=== PATIENT | female | born 1955 | race Caucasian/White ===

== ENCOUNTER 2016-11-27 13:38 | Emergency (ER) | payer MEDICAID ==
[2016-11-27 13:38] VITALS: BMI 37.8
[2016-11-27 13:51] VITALS: BP 119/81; PULSE 85; TEMP 97.8
[2016-11-27 15:15] LABS: RBC URINE 3 /hpf (0-3); URINE BILIRUBIN NEGATIVE (NEGATIVE); URINE BLOOD NEGATIVE (NEGATIVE); URINE COLOR Straw (YELLOW); URINE GLUCOSE (UA) NORMAL (Normal); URINE KETONE NEGATIVE (NEGATIVE); URINE LEUKOCYTE ESTERASE TRACE Leu/uL (Negative); URINE PROTEIN NEGATIVE (NEGATIVE); URINE UROBILINOGEN NORMAL mg/dL (0.2-1.0); WBC URINE 1 /hpf (0-5)
--- NOTE | 2016-11-27 15:20 | C.PDOC ---
History Of Present Illness 61 year old patient, with a past medical history of hypertension, osteoporosis, asthma, migraines and depression, presents to the ED complaining of rectal and vaginal discomfort that has worsened for the past 3 days. Patient was recently seen by Dr. Mendez for a vaginal prolapse and external hemorrhoids. Patient has a follow up visit today and was told there is good healing of the hemorrhoids. Patient was referred to the ED for vaginal discomfort evaluation. Patient thinks she has a prolapsed uterus. Patient had a uterine suspension surgery by Dr. Shepard in 2014 at [facility]. Patient denies any other complaints at this time. Time Seen by Provider: 11/27/16 14:11 Chief Complaint (Nursing): Syncope History Per: Patient History/Exam Limitations: no limitations Onset/Duration Of Symptoms: Worse Since (3 days) Current Symptoms Are (Timing): Still Present Severity: Mild Pain Scale Rating Of: 3 Recent travel outside of the [place]: No Past Medical History Reviewed: Historical Data, Nursing Documentation, Vital Signs Vital Signs: Last Vital Signs Temp 97.8 F 11/27/16 13:45 Pulse 85 11/27/16 13:45 Resp 18 11/27/16 15:52 BP 119/81 11/27/16 13:45 Pulse Ox 97 11/27/16 18:52 - Medical History PMH: Anxiety, Asthma, Bipolar Disorder, Depression, Fractures (RT ANKLE/CASTED) , HTN, Migraine, Osteoporosis Surgical History: Cholecystectomy (20 yrs ago) - [facility] Procedures PLICATION OF VENA CAVA (12/14/13) Family History: States: Unknown Family Hx - Social History Hx Tobacco Use: No Hx Alcohol Use: No Hx Substance Use: No - Immunization History Hx Tetanus Toxoid Vaccination: No Hx Influenza Vaccination: No Hx Pneumococcal Vaccination: No Review Of Systems Except As Marked, All Systems Reviewed And Found Negative. Constitutional: Negative for: Fever Gastrointestinal: Negative for: Vomiting Genitourinary: Positive for: Other (vaginal discomfort). Negative for: Dysuria , Vaginal Discharge, Vaginal Bleeding Musculoskeletal: Negative for: Back Pain Neurological: Negative for: Weakness, Numbness Physical Exam - Physical Exam Appears: Non-toxic, No Acute Distress Skin: Warm, Dry Head: Atraumatic, Normacephalic Neck: Normal ROM, Supple Chest: Symmetrical Cardiovascular: Rhythm Regular Respiratory: Normal Breath Sounds, No Rales, No Rhonchi, No Wheezing Gastrointestinal/Abdominal: Soft, No Tenderness, No Guarding, No Rebound, Other ((+) post surgery for meatal stenosis (-)prolapse (-)rectum or bladder prolapse) Back: Normal Inspection, No CVA Tenderness Extremity: Normal ROM Neurological/Psych: Oriented x3, Normal Speech, Normal Cognition Gait: Steady ED Course And Treatment - Laboratory Results Lab Interpretation: Normal (ua neg.) O2 Sat by Pulse Oximetry: 97 (RA) Pulse Ox Interpretation: Normal Progress Note: Motrin, Ultram, UA Medical Decision Making Medical Decision Making: enlarged post-op urethral meatus, WITH anterior and posterior vaginal wall weakness but no sig prolapse. d/w Dr. 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 Farnsworth- CRAFT MANAGER who addresses vaginal prolapse and urinary incontinence issues. Disposition Doctor Will See Patient In The: Office Counseled Patient/Family Regarding: Studies Performed, Diagnosis - Disposition Referrals: [facility] [Outside] Saran Farnsworth [Staff Provider] - Disposition: HOME/ ROUTINE Disposition Time: 15:21 Condition: GOOD Additional Instructions: Sigue Ibuprofeno 600 mg cada 6 horas suly necessario Tramadol (narcotico) 50 mg cada 6 horas suly necessario para jewels mas severos Sigue con Dr. Giselle parish para hacer jaron para el Lunes si esta desponible. Prescriptions: traMADol [Ultram] 50 mg PO Q6H PRN #20 tab PRN Reason: pain Instructions: Uterine Prolapse (ED) Print Language: URDU - Clinical Impression Clinical Impression: Vaginal pain - Scribe Statement The provider has reviewed the documentation as recorded by the [place] Provider Attestation: All medical record entries made by the Scribe were at my direction and personally dictated by me. I have reviewed the chart and agree that the record accurately reflects my personal performance of the history, physical exam, medical decision making, and the department course for this patient. I have also personally directed, reviewed, and agree with the discharge instructions and disposition.
[2016-11-27 15:53] VITALS: RESP 18
[2016-11-27 16:15] VITALS: O2SAT 97
== END 2016-11-27 16:02 | disposition home or self-care (01) ==
LOC: C.ER 13:38
DX: R10.2 Pelvic and perineal pain (principal)